=== PATIENT | male | born 1945 | race Caucasian/White ===

== ENCOUNTER 2016-08-09 08:09 | Emergency (ER) | payer OTHER ==
[~2016-08-09] VITALS: Ht 177.8 cm; Wt 95.0 kg
[~2016-08-09 08:09] MED LIST: ACYC1CAP16 PO; AMLO5TAB22 PO; ASPI325T PO; BISA5TAB PO; CINN500C7 PO; DIFL150T PO; GABA300C3 PO; GARL10002 PO; LISI10TA PO; METO50TA PO; MULTTAB4 PO; NYST100010 TOP; POTA-267 PO; VALT500T PO
[2016-08-09 08:11] VITALS: BP 133/86; PULSE 86; RESP 16; TEMP 98.6; O2SAT 99
[2016-08-09 08:29] VITALS: BP 161/86; PULSE 75; RESP 16; O2SAT 98
[2016-08-09] MEDS ORDERED: ZANT300T PO (08:40)
[2016-08-09] MEDS ORDERED: MULT-113 PO (08:40)
[2016-08-09] MEDS ORDERED: LORA-361 PO (08:40)
[2016-08-09] MEDS ORDERED: GABA600T PO (08:40)
[2016-08-09] MEDS ORDERED: ASPI81TA81 PO (08:40)
[2016-08-09] MEDS ORDERED: AMLO5TAB2 PO (08:40)
[2016-08-09] MEDS ORDERED: ALBUAER3 INH (08:40)
[2016-08-09] MEDS ORDERED: AMIT50TA3 PO (08:40)
[2016-08-09] MEDS ORDERED: FLUT50SP EACH NARE ×2 (08:40)
[2016-08-09] MEDS ORDERED: METO50TA PO (08:40)
[2016-08-09] MEDS ORDERED: HYDR12.56 PO (08:40)
[2016-08-09] MEDS ORDERED: SODIUM CHLORIDE 0.9% FLUSH 10 ML FLUSH IV FLUSH PRN (08:45)
--- NOTE | 2016-08-09 08:50 | PD ---
HPI Chief Complaint: GI Complaint Time Seen by Provider: 08:28 Travel History International Travel<30 days: No Contact w/Intl Traveler<30days: No Traveled to known affect area: No History of Present Illness HPI 71-year-old male limits that last night he had several episodes of right abdomen pain. It was severe however resolved spontaneously. Pain seems to migrate from the lower right abdomen to the middle abdomen. He notes one loose bowel movement earlier in the evening. No fever or vomiting reported. PFSH Past Medical History Hx Anticoagulant Therapy: Yes Cardiovascular Problems: Yes (HX SD) High Cholesterol: Yes Chemotherapy: No Chest Pain: Yes Cerebrovascular Accident: Yes Coronary Artery Disease: Yes Diabetes: Yes Patient Takes Glucophage: No GERD: Yes Hypertension: Yes Respiratory: No Myocardial Infarction: Yes ("silent") Past Surgical History Cholecystectomy: Yes (OPEN) Hysterectomy: No Social History Alcohol Use: Yes (OCCASIONAL) Tobacco Use: No Substance Use: No Allergies-Medications (Allergen,Severity, Reaction): Coded Allergies: No Known Allergies (Unverified , 02/13/16) Reported Meds & Prescriptions Reported Meds & Active Scripts Active Reported Aspir-81 (Aspirin) 81 Mg Tabdr 81 Mg PO DAILY Zantac (Ranitidine HCl) 300 Mg Tab 300 Mg PO DAILY Amitriptyline (Amitriptyline HCl) 50 Mg Tab 50 Mg PO HS Ocuvite Eye + Multi (Multiple Vitamins W/ Minerals) 1 Tab Tab 1 Tab PO DAILY Claritin (Loratadine) 10 Mg Tab 10 Mg PO DAILY Hydrochlorothiazide 12.5 Mg Tab 12.5 Mg PO DAILY Gabapentin 600 Mg Tab 600 Mg PO HS Fluticasone Nasal Ashley 50 Mcg/Act Naspr 50 Mcg EACH NARE DAILY 50 mcg/spray Fluticasone Nasal Ashley 50 Mcg/Act Naspr 50 Mcg EACH NARE BID 50 mcg/spray Amlodipine (Amlodipine Besylate) 5 Mg Tab 5 Mg PO DAILY Proair Hfa 8.5 GM Inh (Albuterol Sulfate) 90 Mcg/Act Aer 1 Puff INH Q6HR PRN 108 mcg/actuation Review of Systems Except as stated in HPI: all other systems reviewed are Neg Physical Exam Narrative GENERAL: Pleasant 71-year-old male well-nourished well-developed no acute distress SKIN: Warm and dry. HEAD: Atraumatic. Normocephalic. EYES: Pupils equal and round. No scleral icterus. No injection or drainage. ENT: No nasal bleeding or discharge. Mucous membranes pink and moist. NECK: Trachea midline. No JVD. CARDIOVASCULAR: Regular rate and rhythm. RESPIRATORY: No accessory muscle use. Clear to auscultation. Breath sounds equal bilaterally. GASTROINTESTINAL: Soft. Minimal tenderness to deep palpation right abdomen. No flank tenderness. MUSCULOSKELETAL: Extremities without clubbing, cyanosis, or edema. No obvious deformities. NEUROLOGICAL: Awake and alert. No obvious cranial nerve deficits. Motor grossly within normal limits. Five out of 5 muscle strength in the arms and legs. Normal speech. PSYCHIATRIC: Appropriate mood and affect; insight and judgment normal. Data Data Last Documented VS Vital Signs Date Time Temp Pulse Resp B/P Pulse Ox O2 Delivery O2 Flow Rate FiO2 08/09/16 10:36 67 16 137/64 97 08/09/16 08:49 Room Air 08/09/16 08:11 98.6 Vital signs reviewed Orders Complete Blood Count With Diff (08/09/16 08:42) Comprehensive Metabolic Panel (08/09/16 08:42) Lipase (08/09/16 08:42) Ct Abd/Pel W Iv Contrast(Rout) (08/09/16 08:42) Iv Access Insert/Monitor (08/09/16 08:42) Ecg Monitoring (08/09/16 08:42) Oximetry (08/09/16 08:42) Sodium Chloride 0.9% Flush (Ns Flush) (08/09/16 08:45) Sodium Chlorid 0.9% 500 Ml Inj (Ns 500 M (08/09/16 10:00) Iohexol 350 Inj (Omnipaque 350 Inj) (08/09/16 10:22) Labs Laboratory Tests Test 08/09/16 08:45 White Blood Count 10.6 TH/MM3 Red Blood Count 4.76 MIL/MM3 Hemoglobin 14.8 GM/DL Hematocrit 44.2 % Mean Corpuscular Volume 92.8 FL Mean Corpuscular Hemoglobin 31.1 PG Mean Corpuscular Hemoglobin 33.5 % Concent Red Cell Distribution Width 13.2 % Platelet Count 277 TH/MM3 Mean Platelet Volume 8.9 FL Neutrophils (%) (Auto) 66.8 % Lymphocytes (%) (Auto) 18.1 % Monocytes (%) (Auto) 12.8 % Eosinophils (%) (Auto) 1.8 % Basophils (%) (Auto) 0.5 % Neutrophils # (Auto) 7.1 TH/MM3 Lymphocytes # (Auto) 1.9 TH/MM3 Monocytes # (Auto) 1.4 TH/MM3 Eosinophils # (Auto) 0.2 TH/MM3 Basophils # (Auto) 0.1 TH/MM3 CBC Comment DIFF FINAL Differential Comment Sodium Level 138 MEQ/L Potassium Level 3.7 MEQ/L Chloride Level 101 MEQ/L Carbon Dioxide Level 28.1 MEQ/L Anion Gap 9 MEQ/L Blood Urea Nitrogen 25 MG/DL Creatinine 1.00 MG/DL Estimat Glomerular Filtration 73 ML/MIN Rate Random Glucose 102 MG/DL Calcium Level 8.6 MG/DL Total Bilirubin 0.6 MG/DL Aspartate Amino Transf 21 U/L (AST/SGOT) Alanine Aminotransferase 30 U/L (ALT/SGPT) Alkaline Phosphatase 100 U/L Total Protein 7.5 GM/DL Albumin 3.5 GM/DL Lipase 259 U/L MDM Medical Decision Making Medical Screen Exam Complete: Yes Emergency Medical Condition: Yes Medical Record Reviewed: Yes Differential Diagnosis Constipation, Gastritis, Acute Cholecystitis, Biliary Colic, Pancreatitis, STALEY , Hepatitis, Bowel Obstruction, Cystitis, Mesenteric Ischemia, AAA, Appendicitis , Renal Stone/Hydronephrosis, GERD, perforated viscous Narrative Course CBC & BMP Diagram 08/09/16 08:45 LFTs normal Lipase normal CT: no acute disease The patient is resting comfortably and feels better, is alert and in no distress. The patients results and examination findings were discussed. The repeat examination is unremarkable and benign. The history, exam, diagnostic testing, and current condition do not suggest any significant pathology to warrant further testing, continued ED treatment, admission, or surgical evaluation at this point. The vital signs have been stable. The patient does not have uncontrollable pain, intractable vomiting, or other significant symptoms. The patient's condition is stable and appropriate for discharge. The patient will pursue further outpatient evaluation with a primary care physician or other designated or consulting physician as indicated in the discharge instructions. The patient expressed understanding and was agreeable with this plan. Diagnosis Primary Impression: Abdominal pain Qualified Code: R10.11 - Right upper quadrant abdominal pain Referrals: [facility] 2 days Additional Instructions: You have a choice when it comes to health care, and we are glad that you chose [facility]. Hopefully, we have met your expectations on today's visit. You are welcome to return to [facility] at any time, as we are committed to meeting the health care needs of our community. Med/Other Pt SpecificInfo: No Change to Meds Disposition: 01 DISCHARGE HOME Condition: Stable Joesph Yost MD August 09, 2016 08:49
[2016-08-09 09:08] LABS: AUTOMATED NEUTROPHIL # 7.1 TH/MM3 (1.8-7.7); BASOPHIL # 0.1 TH/MM3 (0-0.2); BASOPHIL % 0.5 % (0.0-2.0); EOSINOPHIL # 0.2 TH/MM3 (0-0.4); EOSINOPHIL % 1.8 % (0.0-4.0); HEMATOCRIT 44.2 % (39.0-51.0); HEMO FLAGS DIFF FINAL; LYMPH % 18.1 % (9.0-44.0); LYMPHOCYTE # 1.9 TH/MM3 (1.0-4.8); MEAN CELL VOLUME 92.8 FL (80.0-100.0); MEAN CORPUSCULAR HEMOGLOBIN 31.1 PG (27.0-34.0); MEAN CORPUSCULAR HGB CONC 33.5 % (32.0-36.0); MONO % 12.8 % (0.0-8.0); NEUT % 66.8 % (16.0-70.0); PLATELET COUNT 277 TH/MM3 (150-450); RED BLOOD COUNT 4.76 MIL/MM3 (4.50-5.90); RED CELL DISTRIBUTION WIDTH 13.2 % (11.6-17.2); WHITE BLOOD COUNT 10.6 TH/MM3 (4.0-11.0)
[2016-08-09 09:23] LABS: ANION GAP 9 MEQ/L (5-15); AST (GOT) 21 U/L (15-37); BICARBONATE 28.1 MEQ/L (21.0-32.0); BLOOD UREA NITROGEN 25 MG/DL (7-18); CHLORIDE 101 MEQ/L (98-107); GLOMERULAR FILTRATION RATE 73 ML/MIN (>89); POTASSIUM 3.7 MEQ/L (3.5-5.1); SODIUM (NA) 138 MEQ/L (136-145)
[2016-08-09 09:26] LABS: ALKALINE PHOSPHATASE 100 U/L (45-117); ALT (GPT) 30 U/L (12-78); TOTAL BILIRUBIN ADULT 0.6 MG/DL (0.2-1.0)
[2016-08-09] MEDS ORDERED: SODIUM CHLORID 0.9% 500 ML INJ 500 ML IV ONE (10:00)
[2016-08-09] MEDS ORDERED: IOHEXOL 350 MG/ML 10 ML VIAL (for RAD DIAG) IV ONE (10:22)
[2016-08-09 10:36] VITALS: BP 137/64; PULSE 67; RESP 16; O2SAT 97
--- NOTE | 2016-08-09 10:41 | RADRPT ---
EXAM DATE/TIME: 08/09/2016 10:18 [facility] COMPARISON: No previous studies available for comparison. INDICATIONS : Right side abdominal pain. IV CONTRAST: 99 cc Omnipaque 350 (iohexol) IV ORAL CONTRAST: No oral contrast ingested. RADIATION DOSE: 9.96 CTDIvol (mGy) MEDICAL HISTORY : Cardiovascular disease. Hypertension. Diabetes SURGICAL HISTORY : Cholecystectomy. ENCOUNTER: Initial ACUITY: 2 days PAIN SCALE: 5/10 LOCATION: Right abdomen TECHNIQUE: Volumetric scanning of the abdomen and pelvis was performed. Using automated exposure control and ad justment of the mA and/or kV according to patient size, radiation dose was kept as low as reasonably achievable to obtain optimal diagnostic quality images. FINDINGS: LOWER LUNGS: Bilateral inferior lower lobe atelectasis. LIVER: Status post cholecystectomy. Liver is homogeneous and within normal limits. SPLEEN: Normal size without lesion. PANCREAS: Within normal limits. KIDNEYS: Multiple right-sided renal cysts. The largest measures 2.6 cm in the lower pole. No evidence of hydro nephrosis on the right or left. ADRENAL GLANDS: Within normal limits. VASCULAR: Diffuse arterial calcification. Abdominal aorta diameter within normal limits. Coronary artery calcif ication is noted. BOWEL/MESENTERY: No evidence of bowel dilatation. No free air or free fluid. Appendix not identified. ABDOMINAL WALL: Within normal limits. RETROPERITONEUM: There is no lymphadenopathy. BLADDER: No wall thickening or mass. REPRODUCTIVE: Within normal limits. INGUINAL: There is no lymphadenopathy or hernia. MUSCULOSKELETAL: Severe bony degenerative findings of the lumbar spine. Osteoarthritic findings of the hips right grea ter than left. CONCLUSION: 1. No acute findings in the abdomen or pelvis. 2. Status post cholecystectomy. 3. Right-sided renal cysts. 4. 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 Messi Lau MD on August 09, 2016 at 10:27 Board Certified Radiologist. This report was verified electronically.
== END 2016-08-09 11:19 | disposition home or self-care (01) ==
LOC: NEPE 08:09
DX: R10.9 Unspecified abdominal pain (principal); E11.9 Type 2 diabetes mellitus without complications; E78.00 Pure hypercholesterolemia, unspecified; I10 Essential (primary) hypertension; I25.2 Old myocardial infarction; I25.10 Atherosclerotic heart disease of native coronary artery without angina pectoris; Z79.82 Long term (current) use of aspirin; Z86.73 Personal history of transient ischemic attack (TIA), and cerebral infarction without residual deficits
CPT/HCPCS: 74177; 80053; 83690; 85025; 96360; 99284; J7040; Q9967